=== PATIENT | male | born 1970 | race Caucasian/White ===

== ENCOUNTER 2019-02-06 18:26 | Inpatient (IN) | payer OTHER ==
[2019-02-06 22:24] VITALS: BMI 35.2
--- NOTE | 2019-02-07 05:49 | HP ---
CIWA Score Nausea/Vomitin-Mild Nausea/No Vomiting Muscle Tremors: 4-Moderate,w/Arms Extend Anxiety: 4-Mod. Anxious/Guarded Agitation: 4-Moderately Restless Paroxysmal Sweats: 2 Orientation: 0-Oriented Tacttile Disturbances: 0-None Auditory Disturbances: 0-None Visual Disturbances: 0-None Headache: 0-None Present CIWA-Ar Total Score: 15 - Admission Criteria OASAS Guidelines: Admission for Medically Managed Detox: Requires at least one of the followin. CIWA greater than 12 2. Seizures within the past 24 hours 3. Delirium tremens within the past 24 hours 4. Hallucinations within the past 24 hours 5. Acute intervention needed for co occurring medical disorder 6. Acute intervention needed for co occurring psychiatric disorder 7. Severe withdrawal that cannot be handled at a lower level of care (continued vomiting, continued diarrhea, abnormal vital signs) requiring intravenous medication and/or fluids 8. Admission ROS [facility] Chief Complaint: Heroin and Xanax withdrawal symptoms, on Methadone Therapy Allergies/Adverse Reactions: Allergies Allergy/AdvReac Type Severity Reaction Status Date / Time Fish Containing Products Allergy Verified 02/06/19 22:09 levetiracetam [From Keppra] AdvReac Severe Verified 02/06/19 22:06 phenytoin [From Dilantin] AdvReac Verified 02/06/19 22:07 History of Present Illness: 48 years old male with a long history of heroin and Xanax dependence is seeking admission to detox. Patient has been to previous detox, last at [facility]. He denies past medical history and reports insignificant period of sobriety. Patient reports multiple suicide attempt, last in 2010. Patient denies suicidal ideation at this time. He is on Methadone 70mg at [facility], dose is yet to be verified by the nurse. Patient has bruises all over from falls. Exam Limitations: No Limitations - Ebola screening Have you traveled outside of the country in the last 21 days: No Have you had contact with anyone from an Ebola affected area: No Do you have a fever: No - Review of Systems Constitutional: Chills, Loss of Appetite, Malaise, Night Sweats EENT: reports: Sinus Pressure Respiratory: reports: No Symptoms reported Cardiac: reports: No Symptoms Reported GI: reports: Nausea, Poor Appetite, Poor Fluid Intake, Vomiting, Tarry Stools : reports: No Symptoms Reported Musculoskeletal: reports: Back Pain, Joint Pain, Neck Pain Integumentary: reports: Dryness, Flushing Neuro: reports: Tremors Endocrine: reports: No Symptoms Reported Hematology: reports: No Symptoms Reported Psychiatric: reports: Anxious Other Systems: Reviewed and Negative Patient History - Patient Medical History Hx Anemia: No Hx Asthma: No Hx Chronic Obstructive Pulmonary Disease (COPD): No Hx Cancer: No Hx Cardiac Disorders: No Hx Congestive Heart Failure: No Hx Hypertension: No Hx Hypercholesterolemia: No Hx Pacemaker: No HX Cerebrovascular Accident: No Hx Seizures: No Hx Dementia: No Hx Diabetes: No Hx Gastrointestinal Disorders: No Hx Liver Disease: No Hx Genitourinary Disorders: No Hx Sexually Transmitted Disorders: No Hx Renal Disease (ESRD): No Hx Thyroid Disease: No Hx Human Immunodeficiency Virus (HIV): No Hx Hepatitis C: No Hx Depression: No Hx Suicide Attempt: No Hx Bipolar Disorder: No Hx Schizophrenia: No - Patient Surgical History Past Surgical History: Yes Hx Neurologic Surgery: No Hx Cataract Extraction: No Hx Cardiac Surgery: No Hx Lung Surgery: No Hx Abdominal Surgery: No Hx Appendectomy: No Hx Cholecystectomy: No Hx Genitourinary Surgery: No Hx Orthopedic Surgery: No Hx Hysterectomy: No Anesthesia Reaction: No - PPD History Previous Implant?: Yes (PPD POSITIVE. TREATED WITH INH) PPD to be Administered?: No - Reproductive History Patient is a Female of Child Bearing Age (11 -55 yrs old): No (MALE) - Smoking Cessation Smoking history: Current every day smoker Have you smoked in the past 12 months: Yes Aproximately how many cigarettes per day: 10 Hx Chewing Tobacco Use: No Initiated information on smoking cessation: Yes 'Breaking Loose' booklet given: 02/07/19 - Substance & Tx. History Hx Alcohol Use: No Hx Substance Use: Yes Substance Use Type: Cocaine, Heroin, Marijuana, Opiates, Tranquilizers Hx Substance Use Treatment: Yes - Substances abused Heroin Substance route: Inhalation Frequency: Daily Amount used: 3 bunttle Age of first use: 20 Date of last use: 02/06/19 Alprazolam (Xanax) Substance route: Oral Frequency: Daily Amount used: 14mg Age of first use: 39 Date of last use: 02/06/19 Family Disease History - Family Disease History Family History: Denies Admission Physical Exam BHS - Vital Signs Vital Signs: Vital Signs - 24 hr 02/06/19 22:11 Temperature 96.2 F L Pulse Rate 55 L Respiratory 18 Rate Blood Pressure 117/67 - Physical General Appearance: Yes: Within Normal Limits HEENTM: Yes: Within Normal Limits, Hearing grossly Normal, Normal Voice Respiratory: Yes: Normal Breath Sounds, No Respiratory Distress Neck: Yes: Supple Breast: Yes: Breast Exam Deferred Cardiology: Yes: Regular Rhythm, Regular Rate, Bradycardia Abdominal: Yes: Normal Bowel Sounds Genitourinary: Yes: Within Normal Limits Back: Yes: Normal Inspection Musculoskeletal: Yes: Muscle Pain Extremities: Yes: Tremors Neurological: Yes: Within Normal Limits, Normal Mood/Affect Integumentary: Yes: Warm Lymphatic: Yes: Within Normal Limits Cleared for Admission S - Detox or Rehab [facility] Level of Care: Medically Managed Detox Regimen/Protocol: Valium Breathalyzer - Breathalyzer Breathalyzer: 0 Urine Drug Screen - Test Device Lot number: [id number] Expiration date: 10/05/20 - Control Is test valid?: Yes - Results Drug screen NEGATIVE: No Urine drug screen results: THC-Marijuana, MET-Methamphetamine, FEN-Fentanyl, MOP -Opiates, OXY-Oxycodone, MTD-Methadone, BZO-Benzodiazepines, MDMA-Ecstasy Inpatient Rehab Admission - Rehab Decision to Admit Inpatient rehab admission?: No
[2019-02-07] MEDS ORDERED: hydrOXYzine PAMOATE 25 MG CAPSULE (FP) PO PRN (05:58)
[2019-02-07] MEDS ORDERED: MAGNESIUM HYDROX 2400MG/30ML ORAL SUSPENSION 30 ML CUP PO PRN (05:58)
[2019-02-07] MEDS ORDERED: METHOCARBAMOL 500 MG TABLET PO PRN (05:58)
[2019-02-07] MEDS ORDERED: IBUPROFEN 400 MG TABLET (FP) PO PRN (05:58)
[2019-02-07] MEDS ORDERED: MAG HYDROX/AL HYDROX/SIMETH 30 ML UNIT-DOSE CUP PO PRN (05:58)
[2019-02-07] MEDS ORDERED: BISMUTH SUBSALICYLATE 262 MG/15 ML BTL PO PRN (05:58)
[2019-02-07] MEDS ORDERED: ACETAMINOPHEN 325 MG TABLET (FP) PO PRN ×2 (05:58)
[2019-02-07] MEDS ORDERED: MENTHOL/PHENOL 1 EACH UD MM PRN (05:58)
[2019-02-07] MEDS ORDERED: NICOTINE POLACRILEX 2 MG GUM BUC PRN (05:58)
[2019-02-07] MEDS ORDERED: MAGNESIUM CITRATE 300 ML BOTTLE PO PRN (05:58)
[2019-02-07] MEDS: diazePAM 5 MG TABLET PO SCH ×3 (07:05→21:13)
[2019-02-07] MEDS ORDERED: METHADONE HCL 10 MG TABLET PO SCH (09:15)
[2019-02-07] MEDS ORDERED: METHADONE HCL 10 MG TABLET ONE (09:56)
[2019-02-07] MEDS ORDERED: METHADONE HCL 40 MG DISPERSABLE TABLET ONE (09:57)
[2019-02-07] MEDS: NICOTINE 14 MG/24 HOURS TOPICAL PATCH TD SCH (10:29)
[2019-02-07] MEDS: diazePAM 5 MG TABLET PO PRN (10:31)
[2019-02-07] MEDS: METHADONE 40 MG, METHADONE 30 MG PO SCH (10:33)
[2019-02-07] MEDS: PRENATAL VITAMINS W/ FOLIC ACID TABLET (FP) PO SCH (10:36)
--- NOTE | 2019-02-07 14:56 | PN ---
[facility] CIWA - CIWA Score Nausea/Vomitin-No Nausea/No Vomiting Muscle Tremors: 3 Anxiety: 3 Agitation: 1-Slight > Activity Paroxysmal Sweats: No Perspiration Orientation: 0-Oriented Tacttile Disturbances: 0-None Auditory Disturbances: 3-Moderate Harsh/Frighten Visual Disturbances: 2-Mild Sensitivity Headache: 0-None Present CIWA-Ar Total Score: 12 BHS Progress Note (SOAP) Subjective: Body Aches, Anxious, Tremors. Objective: PATIENT A & O X 3, OBSERVED AMBULATING ON UNIT UNASSISTED. IN NO ACUTE DISTRESS. 02/07/19 14:59 Vital Signs Temperature 96.1 F L 02/07/19 13:08 Pulse Rate 52 L 02/07/19 13:08 Respiratory Rate 18 02/07/19 13:08 Blood Pressure 97/57 L 02/07/19 13:08 O2 Sat by Pulse Oximetry (%) DETOX ADMISSION LAB RESULTS PENDING. 02/07/19 14:59 Assessment: 02/07/19 14:59 WITHDRAWAL SYMPTOMS. Plan: CONTINUE DETOX. RESULTS OF ADMISSION ECG NOTED (SINUS BRADYCARDIA WITH 1ST DEGREE AV BLOCK; ST ELEVATION, PROBABLY DUE TO EARLY REPOLARIZATION). PATIENT DENIES KNOWN HISTORY OF PREVIOUS CARDIOVASCULAR OR ECG ABNORMALITY. PATIENT DENIES CHEST PAIN, DIZZINESS, OR SOB. PATIENT ADVISED TO FOLLOW-UP WITH CAFETERIA OPERATOR AFTER DISCHARGE FROM DETOX FOR GENERAL MEDICAL ASSESSMENT AND FOR ECG ABNORMALITIES NOTED ON DETOX ADMISSION ECG ASSESSMENT. NOTED ON DETOX ADMISSION LABORATORY ASSESSMENT. PATIENT VERBALIZED UNDERSTANDING OF RECOMMENDATION.
--- NOTE | 2019-02-07 18:04 | CONSULT ---
[facility] Psychiatric Consult - Data Date of interview: 02/07/19 Admission source: [facility] Identifying data: Multiple attempts have been made to complete psychiatric consultation. Patient has been somnolent and difficult to awaken throughout the day. Stated to auto service writer, " I'm too tired to talk right now." Nursing staff informed. Psychiatric consultation refused.
[2019-02-07] MEDS: THIAMINE HCL 100 MG TABLET (FP) PO SCH (21:13)
[2019-02-07] MEDS: MELATONIN 5 MG TABLETS PO PRN (23:09)
[2019-02-08] MEDS ORDERED: METHADONE HCL 10 MG TABLET ONE (06:08)
[2019-02-08] MEDS ORDERED: METHADONE HCL 40 MG DISPERSABLE TABLET ONE (06:08)
[2019-02-08] MEDS: diazePAM 5 MG TABLET PO SCH ×2 (06:09→18:31)
[2019-02-08] MEDS: METHADONE 40 MG, METHADONE 30 MG PO SCH (06:09)
--- NOTE | 2019-02-08 10:31 | PN ---
S CIWA - CIWA Score Nausea/Vomitin-Mild Nausea/No Vomiting Muscle Tremors: 3 Anxiety: 2 Agitation: 2 Paroxysmal Sweats: 1-Minimal Palms Moist Orientation: 0-Oriented Tacttile Disturbances: 0-None Auditory Disturbances: 0-None Visual Disturbances: 0-None Headache: 1-Very Mild CIWA-Ar Total Score: 10 BHS Progress Note (SOAP) Subjective: tremor feeling better today wants to contact with family "let them know where I am" patientn try to call his family without sucess Objective: 02/08/19 10:39 Vital Signs Temperature 98.2 F 02/08/19 09:29 Pulse Rate 60 02/08/19 09:29 Respiratory Rate 107 H 02/08/19 09:29 Blood Pressure 107/65 02/08/19 09:29 O2 Sat by Pulse Oximetry (%) 02/08/19 10:39 lab pending Assessment: 02/08/19 10:39 benzo withdrawal sx Plan: continue benzo detox
[2019-02-08] MEDS: diazePAM 5 MG TABLET PO PRN ×2 (10:34→23:00)
[2019-02-08] MEDS: NICOTINE 14 MG/24 HOURS TOPICAL PATCH TD SCH (10:35)
[2019-02-08] MEDS: PRENATAL VITAMINS W/ FOLIC ACID TABLET (FP) PO SCH (10:35)
--- NOTE | 2019-02-08 10:37 | EKG ---
Test Reason : Blood Pressure : / mmHG Vent. Rate : 054 BPM Atrial Rate : 054 BPM P-R Int : 220 ms QRS Dur : 088 ms QT Int : 454 ms P-R-T Axes : 042 019 022 degrees QTc Int : 430 ms SINUS BRADYCARDIA WITH 1ST DEGREE A-V BLOCK ST ELEVATION, CONSIDER EARLY REPOLARIZATION WHEN COMPARED WITH ECG OF 07-FEB-2019 06:22, NO SIGNIFICANT CHANGE WAS FOUND Confirmed by SABI RM MD ([id number]) on 02/08/2019 10:36:54 AM Referred By: Confirmed By:SABI RM MD
--- NOTE | 2019-02-08 10:39 | EKG ---
Test Reason : Blood Pressure : / mmHG Vent. Rate : 052 BPM Atrial Rate : 052 BPM P-R Int : 212 ms QRS Dur : 082 ms QT Int : 452 ms P-R-T Axes : 081 009 016 degrees QTc Int : 420 ms SINUS BRADYCARDIA WITH 1ST DEGREE A-V BLOCK EARLY REPOLARIZATION NO PREVIOUS ECGS AVAILABLE Confirmed by SABI RM MD ([id number]) on 02/08/2019 10:38:29 AM Referred By: MAXIME Confirmed By:SABI RM MD
[2019-02-08 13:12] LABS: HEMATOCRIT 37.1 % (35.4-49); HEMOGLOBIN 11.9 GM/dL (11.7-16.9); MCH 28.7 pg (25.7-33.7); MEAN CELL VOLUME 89.4 fl (80-96); MEAN PLT VOLUME 7.9 fl (7.5-11.1); RBC 4.15 M/mm3 (4.00-5.60); WHITE BLOOD COUNT 5.7 K/mm3 (4.0-10.0)
[2019-02-08 13:36] LABS: BILIRUBIN,TOTAL 0.3 mg/dL (0.2-1); BLOOD UREA NITROGEN 17.1 mg/dL (7-18); CALCIUM 8.3 mg/dL (8.5-10.1); CREATININE 0.8 mg/dL (0.55-1.3); POTASSIUM 4.1 mmol/L (3.5-5.1); TOT PROT 6.1 g/dl (6.4-8.2)
[2019-02-08 13:41] LABS: PLATELET COUNT 268 K/MM3 (134-434)
[2019-02-08] MEDS: THIAMINE HCL 100 MG TABLET (FP) PO SCH (22:58)
[2019-02-08] MEDS: MELATONIN 5 MG TABLETS PO PRN (22:58)
[2019-02-09] MEDS ORDERED: METHADONE HCL 40 MG DISPERSABLE TABLET ONE (04:21)
[2019-02-09] MEDS ORDERED: METHADONE HCL 10 MG TABLET ONE (04:21)
[2019-02-09] MEDS ORDERED: diazePAM 5 MG TABLET PO ONE (06:00)
[2019-02-09] MEDS: METHADONE 40 MG, METHADONE 30 MG PO SCH (06:31)
[2019-02-09] MEDS: NICOTINE 14 MG/24 HOURS TOPICAL PATCH TD SCH (10:38)
[2019-02-09] MEDS: PRENATAL VITAMINS W/ FOLIC ACID TABLET (FP) PO SCH (10:40)
--- NOTE | 2019-02-09 16:11 | PN ---
S CIWA - CIWA Score Nausea/Vomitin-No Nausea/No Vomiting Muscle Tremors: 2 Anxiety: 3 Agitation: 0-Normal Activity Paroxysmal Sweats: 2 Orientation: 2-Disoriented Date<2 days Tacttile Disturbances: 0-None Auditory Disturbances: 0-None Visual Disturbances: 0-None Headache: 0-None Present CIWA-Ar Total Score: 9 BHS Progress Note (SOAP) Subjective: Anxious, Fatigue. Objective: PATIENT A & O X 2 (UNCERTAIN ABOUT CURRENT DAY / DATE). IN NO ACUTE DISTRESS. 02/09/19 16:11 Vital Signs Temperature 98.1 F 02/09/19 13:50 Pulse Rate 48 L 02/09/19 13:50 Respiratory Rate 18 02/09/19 13:50 Blood Pressure 93/63 02/09/19 13:50 O2 Sat by Pulse Oximetry (%) Laboratory Tests 02/08/19 02/08/19 02/08/19 08:00 08:00 08:00 WBC 5.7 RBC 4.15 Hgb 11.9 Hct 37.1 MCV 89.4 MCH 28.7 MCHC 32.0 RDW 15.0 Plt Count 268 MPV 7.9 Sodium 139 Potassium 4.1 Chloride 103 Carbon Dioxide 30 Anion Gap 6 L BUN 17.1 Creatinine 0.8 Est GFR (CKD-EPI)AfAm 120.72 Est GFR (CKD-EPI)NonAf 104.16 Random Glucose 82 Calcium 8.3 L Total Bilirubin 0.3 AST 12 L ALT 16 Alkaline Phosphatase 72 Total Protein 6.1 L Albumin 3.0 L RPR Titer Nonreactive LABS NOTED. Assessment: 02/09/19 16:12 WITHDRAWAL SYMPTOMS. Plan: CONTINUE DETOX. ENCOURAGE AMBULATION. PATIENT SCHEDULED FOR D/C FROM DETOX UNIT TOMORROW.
[2019-02-09] MEDS: MELATONIN 5 MG TABLETS PO PRN (22:49)
[2019-02-09] MEDS: diazePAM 5 MG TABLET PO PRN (22:49)
[2019-02-09] MEDS: THIAMINE HCL 100 MG TABLET (FP) PO SCH (22:55)
[2019-02-10] MEDS ORDERED: METHADONE HCL 40 MG DISPERSABLE TABLET ONE (04:33)
[2019-02-10] MEDS ORDERED: METHADONE HCL 10 MG TABLET ONE (04:33)
[2019-02-10] MEDS: METHADONE 40 MG, METHADONE 30 MG PO SCH (05:51)
[2019-02-10] MEDS: PRENATAL VITAMINS W/ FOLIC ACID TABLET (FP) PO SCH (10:31)
[2019-02-10] MEDS: NICOTINE 14 MG/24 HOURS TOPICAL PATCH TD SCH (11:16)
[2019-02-10 13:40] VITALS: BP 116/59; PULSE 58; TEMP 98.4
--- NOTE | 2019-02-10 14:50 | DS ---
[facility] Detox Discharge Summary Admission Date: 02/07/19 Discharge Date: 02/10/19 - History Present History: Opioid Dependence, Sedative Dependence, MMTP Additional Comments: PATIENT GOING TO [facility] ([facility]) FOR AFTERCARE. PATIENT WAS DISCHARGED FROM DETOX UNIT TO BE TAKEN OVER TO REHAB UNIT IN STABLE MEDICAL CONDITION. Pertinent Past History: History Of Positive PPD. - Physical Exam Results Vital Signs: Vital Signs Temperature 98.4 F 02/10/19 13:39 Pulse Rate 58 L 02/10/19 13:39 Respiratory Rate 18 02/10/19 13:39 Blood Pressure 116/59 L 02/10/19 13:39 O2 Sat by Pulse Oximetry (%) Pertinent Admission Physical Exam Findings: WITHDRAWAL SYMPTOMS. Laboratory Tests 02/08/19 02/08/19 02/08/19 08:00 08:00 08:00 WBC 5.7 RBC 4.15 Hgb 11.9 Hct 37.1 MCV 89.4 MCH 28.7 MCHC 32.0 RDW 15.0 Plt Count 268 MPV 7.9 Sodium 139 Potassium 4.1 Chloride 103 Carbon Dioxide 30 Anion Gap 6 L BUN 17.1 Creatinine 0.8 Est GFR (CKD-EPI)AfAm 120.72 Est GFR (CKD-EPI)NonAf 104.16 Random Glucose 82 Calcium 8.3 L Total Bilirubin 0.3 AST 12 L ALT 16 Alkaline Phosphatase 72 Total Protein 6.1 L Albumin 3.0 L RPR Titer Nonreactive LABS NOTED. - Treatment Hospital Course: Detox Protocol Followed, Detoxed Safely, Responded well, Discharged Condition Good, Rehab Referral Accepted Patient has Accepted a Rehab Referral to: [facility] ([place], [place]). - Medication Discharge Medications: Ambulatory Orders NK [No Known Home Medication] 02/06/19 - Diagnosis (1) Uncomplicated opioid dependence Current Visit: Yes Status: Chronic (2) Methadone maintenance therapy patient Current Visit: Yes Status: Chronic (3) Sedative, hypnotic or anxiolytic dependence with withdrawal, uncomplicated Current Visit: Yes Status: Acute - AMA Did Patient Leave Against Medical Advice: No
== END 2019-02-10 15:06 | disposition other institution (70) | DRG 773 ==
LOC: YASAS 18:26 → Y3N 02-07 06:15
PROVIDERS: ADMIT Surgery; ATTEND Surgery
PROC: HZ2ZZZZ Detoxification Services for Substance Abuse Treatment (ICD-10-PCS; principal; 2019-02-07)
DX: F11.23 Opioid dependence with withdrawal (principal); F13.230 Sedative, hypnotic or anxiolytic dependence with withdrawal, uncomplicated; R94.31 Abnormal electrocardiogram [ECG] [EKG]; R76.11 Nonspecific reaction to tuberculin skin test without active tuberculosis; Z91.013 Allergy to seafood; Z88.8 Allergy status to other drugs, medicaments and biological substances; Z91.5 Personal history of self-harm
CPT/HCPCS: 36415; 80053; 85027; 86593; 93005; 93010

== ENCOUNTER 2019-02-10 14:32 | Inpatient (IN) | payer OTHER ==
[2019-02-10] MEDS ORDERED: MENTHOL/PHENOL 1 EACH UD MM PRN (14:51)
[2019-02-10] MEDS ORDERED: P-EPHED 60MG/TRIPROLIDI 2.5MG TABLET PO PRN (14:51)
[2019-02-10] MEDS ORDERED: guaiFENesin 200 MG/10 ML 10 ML UNIT-DOSE CUPS PO PRN (14:51)
[2019-02-10] MEDS ORDERED: MAGNESIUM CITRATE 300 ML BOTTLE PO PRN (14:51)
[2019-02-10] MEDS ORDERED: MAGNESIUM HYDROX 2400MG/30ML ORAL SUSPENSION 30 ML CUP PO PRN (14:51)
[2019-02-10] MEDS ORDERED: MAG HYDROX/AL HYDROX/SIMETH 30 ML UNIT-DOSE CUP PO PRN (14:51)
[2019-02-10] MEDS ORDERED: ACETAMINOPHEN 325 MG TABLET (FP) PO PRN (14:51)
[2019-02-10] MEDS ORDERED: LOPERAMIDE HCL 2 MG CAPSULE PO PRN (14:51)
--- NOTE | 2019-02-10 14:54 | HP ---
[facility] Rehab Assess/Revision - Admission History Admitted to Rehab from: [facility] Date of Admission to Rehab: 02/10/2019 - Vital signs Vital Signs: NOTED; STABLE. - Findings Detox History & Physical reviewed: Yes Concur with findings: Yes Comments/Additional Findings: PATIENT'S MEDICAL / MEDICATION HISTORY REVIEWED PRIOR TO DISCHARGE FROM DETOX UNIT. PATIENT WAS DISCHARGED FROM DETOX UNIT TO BE TAKEN OVER TO REHAB UNIT IN STABLE MEDICAL CONDITION. Inpatient Rehab Admission - Rehab Decision to Admit Inpatient rehab admission?: Yes - Initial Determination Are CD services needed?: Yes Free of communicable disease: Yes Not in need of hospitalization: Yes - Rehab Admission Criteria Previous failed treatment: Yes Poor recovery environment: Yes Comorbidities: Yes Lacks judgement: Yes Patient is meeting Inpatient Rehab admission criteria:: Yes
[2019-02-10] MEDS: THIAMINE HCL 100 MG TABLET (FP) PO SCH (21:48)
[2019-02-10] MEDS: MELATONIN 5 MG TABLETS PO PRN (21:48)
[2019-02-10] MEDS: NICOTINE POLACRILEX 2 MG GUM BUC PRN (21:59)
[2019-02-11] MEDS ORDERED: METHADONE HCL 10 MG TABLET PO SCH (06:00)
[2019-02-11] MEDS ORDERED: METHADONE HCL 40 MG DISPERSABLE TABLET ONE (06:26)
[2019-02-11] MEDS ORDERED: METHADONE HCL 10 MG TABLET ONE (06:26)
[2019-02-11] MEDS: METHADONE 40 MG, METHADONE 30 MG PO SCH (06:27)
[2019-02-11] MEDS: NICOTINE 14 MG/24 HOURS TOPICAL PATCH TD SCH (10:24)
[2019-02-11] MEDS: PRENATAL VITAMINS W/ FOLIC ACID TABLET (FP) PO SCH (10:24)
[2019-02-11] MEDS: THIAMINE HCL 100 MG TABLET (FP) PO SCH (21:33)
[2019-02-11] MEDS: NICOTINE POLACRILEX 2 MG GUM BUC PRN (22:37)
[2019-02-12] MEDS ORDERED: METHADONE HCL 40 MG DISPERSABLE TABLET ONE (05:58)
[2019-02-12] MEDS ORDERED: METHADONE HCL 10 MG TABLET ONE (05:58)
[2019-02-12] MEDS: METHADONE 40 MG, METHADONE 30 MG PO SCH (06:22)
[2019-02-12] MEDS: NICOTINE POLACRILEX 2 MG GUM BUC PRN ×4 (06:24→21:57)
[2019-02-12] MEDS: PRENATAL VITAMINS W/ FOLIC ACID TABLET (FP) PO SCH (10:52)
[2019-02-12] MEDS: NICOTINE 14 MG/24 HOURS TOPICAL PATCH TD SCH (10:53)
[2019-02-12] MEDS: IBUPROFEN 400 MG TABLET (FP) PO PRN (10:54)
[2019-02-12] MEDS: THIAMINE HCL 100 MG TABLET (FP) PO SCH (21:54)
[2019-02-12] MEDS: MELATONIN 5 MG TABLETS PO PRN (21:55)
[2019-02-13] MEDS: NICOTINE POLACRILEX 2 MG GUM BUC PRN ×4 (00:02→21:33)
[2019-02-13] MEDS ORDERED: METHADONE HCL 10 MG TABLET ONE (06:02)
[2019-02-13] MEDS ORDERED: METHADONE HCL 40 MG DISPERSABLE TABLET ONE (06:02)
[2019-02-13] MEDS: METHADONE 40 MG, METHADONE 30 MG PO SCH (06:21)
[2019-02-13] MEDS: PRENATAL VITAMINS W/ FOLIC ACID TABLET (FP) PO SCH (10:48)
[2019-02-13] MEDS: IBUPROFEN 400 MG TABLET (FP) PO PRN (10:49)
[2019-02-13] MEDS: NICOTINE 14 MG/24 HOURS TOPICAL PATCH TD SCH (10:55)
[2019-02-13] MEDS: THIAMINE HCL 100 MG TABLET (FP) PO SCH (21:32)
[2019-02-14] MEDS ORDERED: METHADONE HCL 40 MG DISPERSABLE TABLET ONE (04:08)
[2019-02-14] MEDS ORDERED: METHADONE HCL 10 MG TABLET ONE (04:08)
[2019-02-14] MEDS: METHADONE 40 MG, METHADONE 30 MG PO SCH (06:15)
[2019-02-14] MEDS: PRENATAL VITAMINS W/ FOLIC ACID TABLET (FP) PO SCH (10:58)
[2019-02-14] MEDS: NICOTINE 14 MG/24 HOURS TOPICAL PATCH TD SCH (10:58)
[2019-02-14] MEDS: NICOTINE POLACRILEX 2 MG GUM BUC PRN ×4 (15:38→23:49)
[2019-02-14] MEDS: THIAMINE HCL 100 MG TABLET (FP) PO SCH (21:47)
[2019-02-15] MEDS ORDERED: METHADONE HCL 10 MG TABLET ONE (05:41)
[2019-02-15] MEDS ORDERED: METHADONE HCL 40 MG DISPERSABLE TABLET ONE (05:42)
[2019-02-15] MEDS: METHADONE 40 MG, METHADONE 30 MG PO SCH (06:23)
[2019-02-15] MEDS: NICOTINE 14 MG/24 HOURS TOPICAL PATCH TD SCH (10:46)
[2019-02-15] MEDS: PRENATAL VITAMINS W/ FOLIC ACID TABLET (FP) PO SCH (10:46)
[2019-02-15] MEDS: NICOTINE POLACRILEX 4 MG GUM BUC PRN ×3 (10:47→23:22)
[2019-02-15] MEDS ORDERED: COLLOIDAL OATMEAL 1 BAR EACH TP PRN (14:52)
[2019-02-15] MEDS: THIAMINE HCL 100 MG TABLET (FP) PO SCH (21:54)
[2019-02-16] MEDS ORDERED: METHADONE HCL 40 MG DISPERSABLE TABLET ONE (05:46)
[2019-02-16] MEDS ORDERED: METHADONE HCL 10 MG TABLET ONE (05:46)
[2019-02-16] MEDS: METHADONE 40 MG, METHADONE 30 MG PO SCH (06:31)
[2019-02-16] MEDS: NICOTINE POLACRILEX 4 MG GUM BUC PRN ×5 (06:34→21:21)
[2019-02-16] MEDS: PRENATAL VITAMINS W/ FOLIC ACID TABLET (FP) PO SCH (11:00)
[2019-02-16] MEDS: NICOTINE 14 MG/24 HOURS TOPICAL PATCH TD SCH (11:00)
[2019-02-16] MEDS: THIAMINE HCL 100 MG TABLET (FP) PO SCH (21:20)
[2019-02-17] MEDS ORDERED: METHADONE HCL 40 MG DISPERSABLE TABLET ONE (05:55)
[2019-02-17] MEDS ORDERED: METHADONE HCL 10 MG TABLET ONE (05:55)
[2019-02-17] MEDS: METHADONE 40 MG, METHADONE 30 MG PO SCH (06:28)
[2019-02-17] MEDS: NICOTINE POLACRILEX 4 MG GUM BUC PRN ×5 (06:30→21:43)
[2019-02-17] MEDS: NICOTINE 14 MG/24 HOURS TOPICAL PATCH TD SCH (10:41)
[2019-02-17] MEDS: PRENATAL VITAMINS W/ FOLIC ACID TABLET (FP) PO SCH (10:42)
[2019-02-17] MEDS: THIAMINE HCL 100 MG TABLET (FP) PO SCH (21:43)
[2019-02-18] MEDS ORDERED: METHADONE HCL 10 MG TABLET ONE (05:47)
[2019-02-18] MEDS ORDERED: METHADONE HCL 40 MG DISPERSABLE TABLET ONE (05:47)
[2019-02-18] MEDS: METHADONE 40 MG, METHADONE 30 MG PO SCH (06:17)
[2019-02-18 07:22] VITALS: TEMP 98.1
[2019-02-18] MEDS: NICOTINE POLACRILEX 4 MG GUM BUC PRN ×2 (09:49→21:51)
[2019-02-18] MEDS: PRENATAL VITAMINS W/ FOLIC ACID TABLET (FP) PO SCH (10:41)
[2019-02-18] MEDS: NICOTINE 14 MG/24 HOURS TOPICAL PATCH TD SCH (10:41)
[2019-02-18] MEDS: THIAMINE HCL 100 MG TABLET (FP) PO SCH (21:51)
[2019-02-19] MEDS ORDERED: METHADONE HCL 10 MG TABLET ONE (05:41)
[2019-02-19] MEDS ORDERED: METHADONE HCL 40 MG DISPERSABLE TABLET ONE (05:41)
[2019-02-19] MEDS: METHADONE 40 MG, METHADONE 30 MG PO SCH (05:54)
[2019-02-19 06:55] VITALS: BP 136/73; PULSE 60
--- NOTE | 2019-02-19 07:56 | PN ---
[facility] Progress Note Note: Patient Name: DIANNE ORELLANA Date of : 66 Patient Status: Inpatient Attending Provider: Roberta Carrillo Date: 02/19/19 07:56 Initialization Date: 02/19/19 07:56 [facility] REHAB Discharge Summary Admission Date: 02/10/19 Discharge Date: 02/19/19 - History Present History: Cannabis Dependence, Opioid Dependence, Sedative Dependence, MMTP Additional Comments: ectasy and metamphetamines abuse also noted Pertinent Past History: NICOTINE DEP HX/O +PPD - Physical Exam Results Vital Signs: Vital Signs Temperature 98.1 F 02/19/19 06:54 Pulse Rate 60 02/19/19 06:54 Respiratory Rate 18 02/19/19 06:54 Blood Pressure 136/73 02/19/19 06:54 O2 Sat by Pulse Oximetry (%) Pertinent Admission Physical Exam Findings: COMPLETED DETOX ON 02/10/2019 AT [facility] AND WAS TRANSFERRED TO REHAB FOR CONTINUATION OF TXMENT - Treatment Hospital Course: Discharged Condition Good Patient has Accepted a Rehab Referral to: PT BELONGS TO [facility]. STATES WILL F/U THERE. - Medication Discharge Medications: Ambulatory Orders NK [No Known Home Medication] 02/06/19 - Diagnosis (1) Cannabis abuse, uncomplicated Status: Chronic (2) Ecstasy abuse Status: Acute (3) History of positive PPD Status: Chronic (4) Nicotine dependence Status: Chronic Qualifiers: Nicotine product type: cigarettes Substance use status: uncomplicated Qualified Code(s): F17.210 - Nicotine dependence, cigarettes, uncomplicated (5) Sedative, hypnotic or anxiolytic dependence with withdrawal, uncomplicated Status: Chronic (6) Methadone maintenance therapy patient Status: Chronic (7) Uncomplicated opioid dependence Status: Chronic - AMA Did Patient Leave Against Medical Advice: No (CLIENT REQUESTING DC AFTER COMPLETING 1 WK OF INPATIENT REHAB. ENCOURAGED TO CONTINUE TXMENT. HE STATES HE IS NO LONGER MOTIVATED DUE TO HAVING TO TAKE CARE OF SOME PERSONAL ISSUES. HE WILL F/U WITH HIS OUTPATIENT PROGRAM. )
--- NOTE | 2019-02-19 09:02 | DS ---
[facility] Detox Discharge Summary Admission Date: 02/10/19 Discharge Date: 02/19/19 - History Present History: Cannabis Dependence, Opioid Dependence, Sedative Dependence, MMTP Additional Comments: ectasy and metamphetamines abuse also noted Pertinent Past History: NICOTINE DEP HX/O +PPD - Physical Exam Results Vital Signs: Vital Signs Temperature 98.1 F 02/19/19 06:54 Pulse Rate 60 02/19/19 06:54 Respiratory Rate 18 02/19/19 06:54 Blood Pressure 136/73 02/19/19 06:54 O2 Sat by Pulse Oximetry (%) Pertinent Admission Physical Exam Findings: COMPLETED DETOX ON 02/10/2019 AT [facility] AND WAS TRANSFERRED TO REHAB FOR CONTINUATION OF TXMENT - Treatment Hospital Course: Discharged Condition Good Patient has Accepted a Rehab Referral to: PT BELONGS TO [facility]. STATES WILL F/U THERE. - Medication Discharge Medications: Ambulatory Orders NK [No Known Home Medication] 02/06/19 - Diagnosis (1) Cannabis abuse, uncomplicated Status: Chronic (2) Ecstasy abuse Status: Acute (3) History of positive PPD Status: Chronic (4) Nicotine dependence Status: Chronic Qualifiers: Nicotine product type: cigarettes Substance use status: uncomplicated Qualified Code(s): F17.210 - Nicotine dependence, cigarettes, uncomplicated (5) Sedative, hypnotic or anxiolytic dependence with withdrawal, uncomplicated Status: Chronic (6) Methadone maintenance therapy patient Status: Chronic (7) Uncomplicated opioid dependence Status: Chronic - AMA Did Patient Leave Against Medical Advice: No (CLIENT REQUESTING DC AFTER COMPLETING 1 WK OF INPATIENT REHAB. )
== END 2019-02-19 07:00 | disposition home or self-care (01) | DRG 772 ==
LOC: YASAS 14:32 → Y5N 14:33
PROVIDERS: ADMIT Neuromusculoskeletal Medicine & OMM; ATTEND Neuromusculoskeletal Medicine & OMM
PROC: HZ42ZZZ Group Counseling for Substance Abuse Treatment, Cognitive-Behavioral (ICD-10-PCS; principal; 2019-02-10)
DX: F11.20 Opioid dependence, uncomplicated (principal); F13.20 Sedative, hypnotic or anxiolytic dependence, uncomplicated; F15.10 Other stimulant abuse, uncomplicated; F12.10 Cannabis abuse, uncomplicated; F17.210 Nicotine dependence, cigarettes, uncomplicated; Z88.8 Allergy status to other drugs, medicaments and biological substances; Z91.013 Allergy to seafood